=== PATIENT | female | born 1960 | race Caucasian/White ===

== ENCOUNTER 2021-05-23 08:00 | Emergency (ER) | payer OTHER ==
[~2021-05-23 08:00] MED LIST: ABILIFY5 MG PO; BACTRIM DS TAB1 EACH PO; CARTIA XT240 MG PO; CRESTOR20 MG PO; CYMBALTA 30MG C30 MG PO; FLEXERIL5 MG PO; K-DUR20 MEQ PO; LASIX20 MG PO; MEDROL 4MG DOSEP4 MG PO; NEXIUM40 MG PO; NORCO 5-325 TA1 EAC1 PO; NORCO 5-325 TA1 EACH PO; NORCO 5/3251 EACH PO; OXYCODONE-ACET1 EAC1 PO; POTASSIUM20 MEQ/11 PO; PRILOSEC20 MG PO; TRAZODONE 150M150 MG PO; VASCEPA1 GM PO; VITAMIN D250000 UNIT PO; VOLTAREN100 GM TOP; XIGDUO XR 10 M1 EACH PO
[2021-05-23] MEDS ORDERED: DICLOFENAC SODI75 MG PO (09:22)
[2021-07-06] MEDS ORDERED: OXYCODONE-ACET1 EAC1 PO (13:10)
[2021-07-21] MEDS ORDERED: OXYCODONE-ACET1 EAC1 PO (14:47)
== END 2021-05-23 09:45 | disposition home or self-care (01) ==
LOC: FER 08:00
DX: S83.91XA Sprain of unspecified site of right knee, initial encounter (principal); I10 Essential (primary) hypertension; X50.9XXA Other and unspecified overexertion or strenuous movements or postures, initial encounter; Y92.009 Unspecified place in unspecified non-institutional (private) residence as the place of occurrence of the external cause
CPT/HCPCS: 73564

== ENCOUNTER 2022-02-13 22:43 | Emergency (ER) | payer MEDICARE ==
[~2022-02-13 22:43] MED LIST changes: +DICLOFENAC SODI75 MG PO; +LYRICA25 M1 PO
== END 2022-02-14 02:30 | disposition home or self-care (01) ==
LOC: FER 22:43
DX: M79.671 Pain in right foot (principal); X58.XXXA Exposure to other specified factors, initial encounter; Y93.01 Activity, walking, marching and hiking; Z28.310 Unvaccinated for COVID-19
CPT/HCPCS: 73630